=== PATIENT | female | born 1950 | race Caucasian/White ===

== ENCOUNTER → 2016-11-04 | Day surgery (SDC) | payer MEDICARE, OTHER ==
[~2016-11-04] VITALS: Ht 154.9 cm; Wt 100.2 kg
[~2016-11-04] MED LIST: 0.9% Sodium Chloride 1,000 ML IV SCH; LEVO125T6 PO; Sodium Chloride LOK Flush 10 mL Syringe IV PRN; fentaNYL-PF 50 mCg/mL 2 mL Inj IVPUSH PRN
[2016-11-04 08:04] VITALS: BP 118/73; PULSE 73; RESP 16; O2SAT 99
[2016-11-04 08:55] VITALS: BP 144/73; PULSE 75; RESP 16; O2SAT 96
[2016-11-04 09:04] VITALS: BP 133/63; PULSE 76; RESP 14; O2SAT 98
[2016-11-04 09:11] VITALS: BP 134/75; PULSE 79; RESP 16; O2SAT 97
--- NOTE | 2016-11-04 09:16 | ENDO ---
[address] [address] ENDOSCOPY PROCEDURE PATIENT: CARLIE CLARKE : 1950 MR#: [id number] ADMIT: 11/04/2016 JOB ID: [id number] DATE: 11/04/2016 PROCEDURE: Colonoscopy. INDICATION: Colon cancer screening. ASA CLASSIFICATION: 2. MALLAMPATI SCORE: 2. MEDICATIONS: Versed 6 mg, fentanyl 100 mcg. INSTRUMENT USED: PCF-H180-AL PREPARATION QUALITY: Good. PROCEDURE DETAILS: After informed consent was obtained, the patient was brought into the GI suite, where she was placed on oxygen via nasal cannula and monitored with continuous pulse oximeter, telemetry, and blood pressure monitoring. A time-out was performed. Then, she was placed in a left lateral decubitus position and medications were administered for sedation. A digital rectal exam was performed which was unremarkable. The colonoscope was then inserted into the rectum and advanced under direct visualization to the terminal ileum. Once the terminal ileum was reached, the colonoscope was withdrawn back in the rectum as the mucosa and lumen were examined. In the rectum, retroflexion was performed. Following retroflexion, remaining air in the rectum was suctioned, and procedure was completed. FINDINGS: 1. Scarring as well as deformity was noted at the junction of the ascending colon with the cecum. I was able to visualize the appendiceal orifice. However, I was unable to completely visualize the cecum. Otherwise normal exam from rectum to terminal ileum. IMPRESSION: Deformed ascending colon and cecum junction with mucosal scarring suggestive of prior inflammation, and possibly consistent with the patient's history of Crohn's disease. RECOMMENDATIONS: Follow up in GI clinic as needed. COMPLICATIONS: None. ESTIMATED BLOOD LOSS: 0.
== END | disposition home or self-care (01) ==
LOC: END 07:26
PROVIDERS: ATTEND Internal Medicine Gastroenterology
DX: Z12.11 Encounter for screening for malignant neoplasm of colon (principal); K50.90 Crohn's disease, unspecified, without complications; E03.9 Hypothyroidism, unspecified; Z87.891 Personal history of nicotine dependence
CPT/HCPCS: 99153; G0121; G0500; J2250; J3010; J7030